=== PATIENT | male | born 1950 | race Caucasian/White ===

== ENCOUNTER 2024-08-21 13:23 | Outpatient (CLI) | payer MEDICARE, SELFPAY ==
--- NOTE | ~2024-08-21 | PE_ITS ---
EXAMINATION: PET_PETPSMAST_PT DATE: 08/21/2024 15:51 INDICATION: Prostate cancer TECHNIQUE: 5.595 mCi of Illucix Ga-[id number]) was administered i.v. Low dose computed sherron graphy (CT) images were acquired from the base of the brain to the base of the brain to the proximal thighs for attenuation correction and anatomic localization. Positron emission tomography (PET) image s were acquired in the same distribution beginning 90 minutes after injection. Images including fused PET/CT images were reconstructed in axial, coronal, and sagittal planes. Automated exposure control technique was employed. The dose-length product was 1052.07mGy-cm. COMPARISON: None FINDINGS: Head/neck: Typical pattern of symmetric physiologic increased activity in the lacrimal, parotid and submandibula r glands as well as along the mucosa of the nasal and oral cavities, pharynx and hypopharynx. No path ologically enlarged cervical lymphadenopathy or suspicious foci of increased uptake in the visualized head or neck. Chest: Moderate emphysema. No suspicious pulmonary nodules, pneumonia, pulmonary edema or pleural effusion. Heart size is normal. Atherosclerotic coronary artery calcific location. No pericardial effusion. Tho racic aorta is normal in caliber. No pathologically enlarged or PSMA avid thoracic lymphadenopathy. T here is mild increased uptake associated with couple tiny exophytic skin nodules at the junction of t he shoulders on the lateral base of the neck measuring 7 mm in maximal diameter on the right and 4 mm on the left with maximal SUV values of 2.4 on the right and 2.0 on the left. Abdomen/pelvis/proximal thighs: Physiologic renal accumulation and excretion of activity in the kidneys, bladder and along portions o f ureters. Photopenic defect associated with a 1.6 cm low-attenuation right renal cyst. Additional ph otopenic defect associated with an 1.8 cm exophytic lesion at the upper pole the left kidney which is soft tissue density most likely a proteinaceous/hemorrhagic cyst although differential would include a solid renal cell carcinoma cannot be excluded. Prostatomegaly measuring 5.8 x 5.3 cm with heteroge neous increased activity most intense at the right inferior aspect of the gland with maximal SUV of 5 .5 consistent with reported primary prostate cancer. Normal degree and slightly heterogenous pattern of increased uptake throughout the liver and spleen without radiologic correlate or dominant PSMA andie d lesion. The gallbladder, pancreas and bilateral adrenal glands are normal. Moderate uptake scattere d throughout the bowels with typical duodenal and proximal jejunal predominance and without radiologi c correlate, also likely physiologic. No other abnormal foci of increased uptake or pathologically en larged lymphadenopathy in the abdomen, pelvis or proximal thighs. Musculoskeletal: There is a single tiny focus of increased uptake with maximal SUV of 3.9 located at the junction of t he body and spine of the right scapula where the bone is too thin to determine where there is a corre sponding lytic or blastic bone lesion. There are a few additional scattered sclerotic bone lesions in cluding at the posterior left second rib, the right transverse process of T3, the sacral side of the anterior left sacroiliac joint, the left supra-acetabular region and right femoral head, all of which are without abnormal activity consistent with bone islands. No other suspicious lytic, blastic or ab normally PSMA avid bone lesions. Moderate spondylosis with chronic compression burst fractures in the lumbar spine with change of prior L4 vertebroplasty. IMPRESSION: 1. Heterogeneous increased uptake in the enlarged prostate is prominent inferiorly on the right likel y representing the site of the reported primary prostate cancer. 2. Single focus of abnormal increased bone uptake which is suspicious for metastatic disease. 3. Indeterminate mild increased uptake associated with a couple small exophytic skin nodules at the j unction of the left and right shoulders and the base of the neck which would be highly atypical to re present metastatic disease. 4. Indeterminate 1.8 cm exophytic soft tissue density lesion at the upper pole the left kidney most l ikely proteinaceous/hemorrhagic cyst although differential includes solid renal cell carcinoma and wo uld recommend further evaluation with pre and postcontrast MRI or CT. 5. Moderate emphysema. Reviewed, dictated and finalized at location A. IMPRESSION: 1. Heterogeneous increased uptake in the enlarged prostate is prominent inferio rly on the right likely representing the site of the reported primary prostate cancer. 2. Single focus of abnormal increased bone uptake which is suspicious for metas tatic disease. 3. Indeterminate mild increased uptake associated with a couple small exophytic skin nodules at the junction of the left and right shoulders and the base of t he neck which would be highly atypical to represent metastatic disease. 4. Indeterminate 1.8 cm exophytic soft tissue density lesion at the upper pole the left kidney most likely proteinaceous/hemorrhagic cyst although differentia l includes solid renal cell carcinoma and would recommend further evaluation wi pre and postcontrast MRI or CT. 5. Moderate emphysema.
--- OUTSIDE RECORDS SUMMARY | 2024-08-21 13:34 | XMS_ITS | Clinical Summary ---
Author Organization [facility] Address [address] [place] [address] Care Team Providers Care Sr. Director Product Management Name Role Phone Lokesh Elkins MD Primary Care Provide r Source Comments [facility],non-owned Affiliates and Associated Physician Practices is amultiple site organization consisting of ambulatory clinics and hospital sitesin [place], [place] and [place]. This disclosure is being madepursuant to the Care Everywhere program and may not contain all information available regarding this patient. Last updated 17.[facility] Allergies Active Allergy Reactions Criticality Noted Date Comments Oxycodone Psychiatric,Vomiting Medium 05/31/2024 Medications * Be aware that medications may not be up to date on this document. Alwaysverify current medications with the patient. dutasteride (AVODART) 0.5 MG capsule Take 1 (one) capsule by mouth once daily 0 Active omeprazole (PriLOSEC) 40 MG capsule Take 1 (one) capsule by mouth daily before breakfast 30 capsule 3 5 09/29/19 25 Active Active Problems Problem Noted Date Diagnosed Date Zenker's diverticulum 05/30/2024 Abdominal aortic aneurysm 11/05/2019 Other hyperlipidemia 11/05/2019 Encounters Date Type Department Care Team Description 05/30/2024 12:36 PM CDT Anesthesia Event [facility] - Periop [address] [place] [address] Syeda Steele MD Gwarnicka, Danuta, MD 05/30/2024 12:25 PM CDT - 05/30/2024 1:53 PM CDT Surgery [facility] - Periop [address] [place] [address] Jm Qureshi MD ZENKER'S DIVERTICULECTOMY 05/30/2024 9:24 AM CDT - 05/31/2024 11:27 AM CDT Hospital Encounter [facility] [address] [place] [address] Jm Qureshi MD Surgery General Discharge Disposition: Home or Self Care 05/30/2024 Travel from Last 3 Months Social History Tobacco Use Types Packs/Day Years Used Date Smoking Tobacco: Former Smokeless Tobacco: Never Alcohol Use Standard Drinks/Week Comments Not Currently 0 (1 standard drink = 0.6 oz pur e alcohol) AUDIT-C Answer Date Recorded Q1: How often do you have a drink containing alcohol? Never 05/30/2024 Q2: How many drinks containi ng alcohol do you have on a typical day when you are drinking? Patient does not drink Q3: How often do you have si x or more drinks on one occasion? Never 05/30/2024 Sex and Gender Information Value Date Recorded Sex Assigned at Not on file Legal Sex Male 2:06 PM [employer]ULATING [employer] Gender Identity Not on file Sexual Orientation Not on file Last Filed Vital Signs Vital Sign Reading Time Taken Comments Blood Pressure 127/73 05/31/2024 7:44 AM CDT Pulse 46 05/31/2024 7:44 AM CDT Temperature 36.6 C (97.9 F) 05/31/2024 7:44 AM CDT Respiratory Rate 20 05/31/2024 7:44 AM CDT Oxygen Saturation 97% 05/31/2024 7:44 AM CDT Inhaled Oxygen Concentration - - Weight 85.3 kg (188 lb) 05/30/2024 10:01 AM CDT Height 182.9 cm (6') 05/30/2024 10:01 AM CDT Body Mass Index 25.5 05/30/2024 10:01 AM CDT Plan of Treatment Health Maintenance Due Date Last Done Comments MEDICARE AWV 12 MONTHS 1948 DTAP/TDAP/TD VACCINES (1 - Tdap) 1967 PNEUMOCOCCAL VACCINE 50+ (1 of 1 - PCV) 1998 ZOSTER VACCINE (1 of 2) 1998 Respiratory Syncytial Virus (RSV) Vaccine Pt: or over 60 yrs (1 - 1-dose 75+ series) 2023 COVID-19 VACCINE ( season) 2023 01/05/2022, 07/09/2021, 01/29/2021, Additional history exists DEPRESSION SCREENING 02/22/2024 HEPATITIS C SCREENING Completed 03/01/2019 INFLUENZA VACCINE Completed 12/19/2023, , 12/01/2017 HEPATITIS B VACCINE Aged Out No longe r eligible based on patient's age to complete this topic HIB VACCINE Aged Out No longer eligi ble based on patient's age to complete this topic HPV VACCINE Aged Out No longer eligi ble based on patient's age to complete this topic MENINGOCOCCAL (Group B) VACCINE SHARED DECISION-MAKING Aged Out No longer eligible based on patient's age to complete this topic MENINGOCOCCAL GROUPS A/C/Y/W VACCINE Aged Out No longer eligible based on patient's age to complete this topic Procedures Procedure Name Priority Date/Time Associated Diagnosis Comments CARDIAC RHYTHM STRIP ORDER 06/04/2024 3:05 PM CDT VT ESOPHAGOSCOPY RIGID TRANSORAL 05/30/2024 12:22 PM CDT Acute sinusitis, recurrence not specified, unspecified location Chronic GERD Zenker diverticulum EKG 12-LEAD STAT 05/30/2024 10:06 AM CDT Zenker's diverticulum from Last 3 Months Results * CARDIAC RHYTHM STRIP ORDER (06/04/2024 3:05 PM CDT) Narrative 06/04/2024 3:05 PM CDT Ordered by an unspecified provider. us Scanned Document CARDIAC SERVICES ORDERABLES Fin al Result * EKG 12-LEAD (05/30/2024 10:06 AM CDT) Ventricular Rate 59 BPM [facility] Atrial Rate 59 BPM [facility] P-R Interval 204 ms [facility] QRS Duration ms 156 ms [facility] Q-T Interval ms 466 ms [facility] QTC Calculation (Bezet) 461 ms [facility] Calculated P [place] 65 degrees [facility] Calculated R [place] -27 degrees [facility] Calculated T [place] -12 degrees [facility] Interpretation EKG Sinus bradycardia with occasional Premature ventricular complexes Right bundle branch block Abnormal ECG No previous ECGs available Confirmed by [facility] ([id number] on 05/30/2024 11:06:48 PM [facility] 05/30/2024 10:0 6 AM CDT 05/30/2024 11:06 PM CDT us Huey Echols MD ECG ORDERABLES Edited Resul t - Final [facility] from Last 3 Months Insurance MEDICARE [facility] MEDICARE [facility] MEDICARE [facility] Advance Directives * Full Code (Latest Code Status on File) Date Activated Date Inactivated Comments 05/30/2024 3:50 PM 05/31/2024 12:33 PM Care Teams Sr. Director Product Management Relationship Specialty Start Date End Date Lokesh Elkins MD [address] [place] [phone] PCP - General Pediatrics 05/11/19
== END 2024-08-21 13:24 | disposition home or self-care (01) ==
LOC: ANHIMG 13:30
PROVIDERS: Visit Provider Urology
DX: C61 Malignant neoplasm of prostate (principal); J43.9 Emphysema, unspecified
CPT/HCPCS: 78815; A9596